=== PATIENT | female | born 1985 | race American Indian/Alaskan Native ===

== ENCOUNTER 2016-12-01 07:50 | Emergency (ER) | payer OTHER ==
[2016-12-01 08:07] VITALS: BP 121/76; PULSE 77; TEMP 98; O2SAT 99; BMI 31.6
--- NOTE | 2016-12-01 09:55 | ED PDOC ---
HPI: Allergic Reaction Time Seen by Provider: 12/01/16 08:24 Chief Complaint (Nursing): Allergic Reaction Chief Complaint (Provider): Allergic Reaction History Per: Patient History/Exam Limitations: no limitations Onset/Duration Of Symptoms: Days Current Symptoms Are (Timing): Still Present Possible Cause: Unknown Associated Symptoms: Swelling Home/EMS Treatment: Benadryl, Steroids Severity: Mild Additional Complaint(s): Patient is a 31 year old female who presents to ED for swelling of her upper and lower lips this morning. Patient notes similar swelling last week, started on Medrol dose pack by a virtual doctor with symptoms subsiding. States that they returned on Wednesday, resolved with Benadryl but returned again this morning. Denies any tingling, tongue swelling, SOB, throat swelling, rash or headache. Reports she has not taken any medication this morning . Past Medical History Reviewed: Historical Data, Nursing Documentation, Vital Signs Vital Signs: Last Vital Signs Temp 98 F 12/01/16 07:53 Pulse 77 12/01/16 07:53 Resp BP 121/76 12/01/16 07:53 Pulse Ox 99 12/01/16 07:53 - Medical History PMH: No Chronic Diseases - Surgical History Surgical History: No Surg Hx - Family History Family History: States: No Known Family Hx - Living Arrangements Living Arrangements: With Family - Allergies Allergies/Adverse Reactions: Allergies Allergy/AdvReac Type Severity Reaction Status Date / Time tree nut Allergy RASH Verified 12/01/16 08:02 Review of Systems Eyes: Negative for: Vision Change ENT: Positive for: Mouth Swelling (lip swelling ). Negative for: Throat Pain, Throat Swelling Cardiovascular: Negative for: Chest Pain, Palpitations Respiratory: Negative for: Shortness of Breath Gastrointestinal: Negative for: Nausea, Vomiting Skin: Negative for: Rash Physical Exam - Reviewed Nursing Documentation Reviewed: Yes Vital Signs Reviewed: Yes - Physical Exam Appears: Positive for: Non-toxic, No Acute Distress Skin: Positive for: Normal Color, Warm Eye Exam: Positive for: Normal appearance ENT: Positive for: Other (mild left upper and lower lip swelling ). Negative for: Tonsillar Swelling Neck: Positive for: Normal, Painless ROM Cardiovascular/Chest: Positive for: Regular Rate, Rhythm. Negative for: Murmur Respiratory: Positive for: Normal Breath Sounds. Negative for: Stridor, Wheezing Extremity: Positive for: Normal ROM Neurologic/Psych: Positive for: Alert, Oriented - ECG O2 Sat by Pulse Oximetry: 99 (RA) Pulse Ox Interpretation: Normal - Progress Re-evaluation Time: 10:44 Condition: Re-examined, Improved Disposition - Clinical Impression Clinical Impression: Allergic reaction, Angioedema of lips - Patient ED Disposition Is Patient to be Admitted: No Doctor Will See Patient In The: Office Counseled Patient/Family Regarding: Studies Performed, Diagnosis, Need For Followup - Disposition Referrals: [facility] [Outside] Nigel Anderson MD [Staff Provider] - Disposition: Routine/Home Disposition Time: 10:42 Condition: GOOD Additional Instructions: Return for worsening. Follow up with your PCP in 2-3 days. Take benadryl for swelling. Continue medications as instructed. Follow up with your PCP or allergologist in 2-3 days. Instructions: Angioedema (ED) Medical Decision Making Medical Decision Making: Time: 904 Initial impression: Allergic reaction, mild edema Initial plan: -- Benadryl, Pepcid and Prednisone PO Scribe Attestation: Documented by Rola De Leon acting as a scribe for Mya Ingram MD MD Scribe Attestation: All medical record entries made by the Scribe were at my direction and personally dictated by me. I have reviewed the chart and agree that the record accurately reflects my personal performance of the history, physical exam, medical decision making, and the department course for this patient. I have also personally directed, reviewed, and agree with the discharge instructions and disposition.
[2016-12-01 11:06] VITALS: RESP 16
== END 2016-12-01 10:53 | disposition home or self-care (01) ==
LOC: H.ER 07:50
DX: T78.3XXA Angioneurotic edema, initial encounter (principal); T78.40XA Allergy, unspecified, initial encounter; X58.XXXA Exposure to other specified factors, initial encounter